=== PATIENT | male | born 1960 | race African-American/Black ===

== ENCOUNTER 2024-01-11 02:21 | Emergency (ER) | payer SELFPAY ==
[~2024-01-11] VITALS: Ht 165.1 cm; Wt 75.0 kg
[2024-01-11 02:25] VITALS: RESP 22
[2024-01-11 02:27] VITALS: O2SAT 67
[2024-01-11 02:59] LABS: BASOPHILS % 1.2 % (0.0-2.0); EOSINOPHILS % 0.8 % (0.0-5.0); HEMATOCRIT. 46.7 % (42.0-52.0); HEMOGLOBIN. 15.6 g/dL (14.0-18.0); MEAN CORPUSCULAR HEMOGLOBIN 33.2 pg (28.0-32.0); MEAN CORPUSCULAR HGB CONC 33.3 g/dL (31.0-37.0); MEAN CORPUSCULAR VOLUME 99.7 fL (80.0-94.0); MEAN PLATELET VOLUME 9.2 fl (7.4-10.4); MONOCYTES % 4.1 % (2.0-8.0); NEUTROPHILS % 42.9 % (40.0-76.0); PLATELET 176 x1000/uL (130-400); RED BLOOD CELL COUNT 4.68 mill/uL (4.7-6.1); RED CELL DISTRIBUTION WIDTH 13.6 % (11.6-14.6); WHITE BLOOD COUNT 8.7 x1000/uL (4.5-11.0)
[2024-01-11 03:03] LABS: CHLORIDE 111 mEq/L (98-107); POTASSIUM 3.8 mEq/L (3.5-5.1); SODIUM 144 mEq/L (136-145)
[2024-01-11 03:04] LABS: CALCIUM 9.2 mg/dL (8.7-10.4); CARBON DIOXIDE 20 mEq/L (21-32)
[2024-01-11 03:09] LABS: CREATININE 1.3 mg/dL (0.6-1.3); GLUCOSE 163 mg/dL (70-105); UREA NITROGEN BLOOD 10 mg/dL (9-23)
[2024-01-11] MEDS: NITROGLYCERIN 50MG PREMIX 250 ML IV NR (03:11)
[2024-01-11 03:14] LABS: TROPONIN I HIGH SENSITIVITY 109 ng/L (3.0-53)
[2024-01-11] MEDS ORDERED: GUAIFENESIN 200MG/10ML SUGAR FREE UDC PO PRN (05:15)
[2024-01-11] MEDS ORDERED: ACETAMINOPHEN 325MG TABLET PO PRN ×2 (05:15)
[2024-01-11] MEDS ORDERED: IPRATROPIUM/ALBUTEROL 0.5-3(2.5)MG/3ML NEB HHN PRN (05:15)
[2024-01-11] MEDS ORDERED: DOCUSATE SODIUM 100MG CAPSULE PO PRN (05:15)
[2024-01-11] MEDS ORDERED: ENOXAPARIN 80MG/0.8ML SYR SUBCUT NR (05:30)
[2024-01-11] MEDS: FUROSEMIDE 40MG/4ML VIAL IVP SCH (06:11)
[2024-01-11] MEDS: CLOPIDOGREL 75MG TABLET PO SCH (06:11)
[2024-01-11 06:23] LABS: INR 1.1; IRON 71 ug/dL (65-175); PROTHROMBIN TIME 11.9 sec (9.6-11.0)
[2024-01-11 06:24] LABS: TRIGLYCERIDE 63 mg/dL (0-150)
[2024-01-11 06:25] LABS: LDL CHOLESTEROL 90 mg/dL (5-100)
[2024-01-11 06:26] VITALS: RESP 20
[2024-01-11 06:26] LABS: ALBUMIN 4.1 g/dL (3.2-4.8); CHOLESTEROL 155 mg/dL (<200); HDL CHOLESTEROL 58 mg/dL (>55); PHOSPHORUS 4.1 mg/dL (2.5-4.9); TOTAL IRON BINDING CAPACITY 92 ug/dl (250-425)
[2024-01-11] MEDS: IPRATROPIUM/ALBUTEROL 0.5-3(2.5)MG/3ML NEB HHN SCH (06:26)
[2024-01-11 06:30] LABS: FOLIC ACID (FOLATE) SERUM > 20.00 ng/mL (>5.38); THYROID STIMULATING HORMONE 1.25 uIU/mL (0.55-4.78); VITAMIN B12 SERUM 783 pg/mL (211-911)
[2024-01-11 06:34] LABS: BG BASE EXCESS 0.5 mmol/L (-2.0-2.0); BG CARBOXYHEMOGLOBIN 0.9 % (0.5-1.5); BG FRACTION INSPIRED OXYGEN 100; BG METHEMOGLOBIN 0.1 % (0.0-1.5); BG PCO2 44.9 mmHg (35.0-45.0); BG PO2 454.3 mmHg (75.0-100.0); BG SAMPLE SITE RIGHT RADIAL; BG TOTAL HEMOGLOBIN 15.1 g/dL (12.0-18.0); BG VENT MODE MASK - BIPAP
[2024-01-11 06:59] LABS: CLARITY URINE CLEAR (CLEAR); COLOR URINE YELLOW (YELLOW); GLUCOSE URINE NEGATIVE (NEGATIVE); KETONES URINE NEGATIVE (NEGATIVE); LEUKOCYTE ESTERASE URINE NEGATIVE (NEGATIVE); NITRITE URINE NEGATIVE (NEGATIVE); OCCULT BLOOD URINE TRACE (NEGATIVE); PH URINE 5.5 (4.5-8.0); PROTEIN URINE 2+ (NEGATIVE); SPECIFIC GRAVITY URINE 1.013 (1.005-1.030); UROBILINOGEN URINE 0.2 E.U./dL (0.2-1.0)
[2024-01-11 07:08] LABS: ALANINE AMINOTRANSFERASE 10 IU/L (10-49); ALBUMIN 3.9 g/dL (3.2-4.8); ASPARTATE AMINOTRANSFERASE 20 IU/L (<34); BILIRUBIN DIRECT 0.3 mg/dL (<=3.0); BILIRUBIN TOTAL 0.9 mg/dL (0.1-1.0); PROTEIN TOTAL 6.8 g/dL (6.0-8.3)
[2024-01-11 07:14] LABS: ETHANOL BLOOD < 10 mg/dL (<10)
[2024-01-11 07:16] LABS: RBC URINE 0-2 /hpf (0-2); SQUAMOUS EPITHELIAL CELL URINE NONE SEEN /lpf (RARE/1+); WBC URINE 0-2 /hpf (0-2)
[2024-01-11 07:17] LABS: BACTERIA URINE NONE SEEN
[2024-01-11 07:22] LABS: *AMPHETAMINES SCREEN URINE NEGATIVE (NEGATIVE); *BARBITURATES SCREEN URINE NEGATIVE (NEGATIVE); *BENZODIAZEPINES SCREEN URINE NEGATIVE (NEGATIVE); *COCAINE SCREEN URINE NEGATIVE (NEGATIVE); CANNABINOID URINE SCREEN PRESUMPTIVE POSITIVE (NEGATIVE); ECSTASY MDMA SCREEN URINE NEGATIVE (NEGATIVE); METHADONE URINE SCREEN NEGATIVE (NEGATIVE); OPIATES URINE SCREEN NEGATIVE (NEGATIVE); PHENCYCLIDINE URINE SCREEN NEGATIVE (NEGATIVE)
[2024-01-11] MEDS: NITROGLYCERIN 50MG PREMIX 250 ML IV ONE (07:24)
[2024-01-11] MEDS: PANTOPRAZOLE SODIUM 40 MG/VIAL IV SCH (07:31)
[2024-01-11 07:33] VITALS: RESP 20
[2024-01-11 09:15] LABS: CARBON DIOXIDE 31 mEq/L (21-32); CHLORIDE 107 mEq/L (98-107); POTASSIUM 3.7 mEq/L (3.5-5.1); SODIUM 142 mEq/L (136-145)
[2024-01-11 09:16] LABS: CALCIUM 9.2 mg/dL (8.7-10.4)
[2024-01-11 09:21] LABS: CREATINE KINASE MB FRACTION 4.7 ng/mL (0.5-3.6); CREATININE 1.1 mg/dL (0.6-1.3); GLUCOSE 101 mg/dL (70-105); UREA NITROGEN BLOOD 12 mg/dL (9-23)
[2024-01-11 09:23] LABS: TROPONIN I HIGH SENSITIVITY 203 ng/L (3.0-53)
[2024-01-11] MEDS: ENOXAPARIN 80MG/0.8ML SYR SUBCUT SCH (09:32)
[2024-01-11] MEDS: THIAMINE HCL 100MG TABLET PO SCH (09:32)
[2024-01-11] MEDS: FOLIC ACID 1MG TABLET PO SCH (09:33)
[2024-01-11 11:22] VITALS: BP 133/96; PULSE 89; RESP 17; TEMP 98.6
[2024-01-11] MEDS ORDERED: ATORVASTATIN CALCIUM 40MG TABLET PO SCH (21:00)
== END 2024-01-11 11:36 | disposition left against medical advice (07) ==
LOC: ER 02:21 → EDBEDREQTM 05:29 → EDBEDREQSVC 05:29 → EDBEDREQ 05:29 → EDBEDREQSVC 09:32 → ER 11:36
DX: J96.01 Acute respiratory failure with hypoxia (principal); I50.1 Left ventricular failure, unspecified
CPT/HCPCS: 80061; 80076; 80305; 80048; 81003; 82040; 80320; 82553; 82607; 82746; 83036; 83880; 83540; 83550; 83605; 83690; 83735; 84100; 84443; 85025; 85379; 85610; 84484; 36415; 84145; 71045; 82805; 82375; 94660; 93005; 96367; 96365; 96372; 96375; 99285; 36600; J1650; J1940; J3490; Z7610 ×9; J2470; G0480